=== PATIENT | female | born 1955 | race Hispanic/Latino ===

== ENCOUNTER 2020-11-14 06:20 | Day surgery (SDC) | payer OTHER ==
[2020-11-14] VITALS (10 sets, daily range): BP systolic 144–154; BP diastolic 68–86
[~2020-11-14] VITALS: Ht 162.6 cm; Wt 79.4 kg
[2020-11-14] MEDS ORDERED: 0.9%NACL 1000ML 1,000 ML IV ONE (07:28)
[2020-11-14] MEDS ORDERED: AMLO-257 PO (08:06)
[2020-11-14] MEDS ORDERED: CYAN250014 PO (08:06)
[2020-11-14] MEDS ORDERED: INSU200I SQ (08:06)
[2020-11-14] MEDS ORDERED: INSLAN SQ ×2 (08:06)
[2020-11-14] MEDS ORDERED: ATOR40TA71 PO (08:06)
[2020-11-14] MEDS ORDERED: LEVO25CA4 PO (08:06)
[2020-11-14] MEDS ORDERED: PROPOFOL 10 MG/ML 20ML VIAL IV ONE (12:30)
== END 2020-11-14 13:45 | disposition home or self-care (01) ==
LOC: ENDO 06:20 → DAH 06:20 → ENDO 13:45
PROVIDERS: ATTEND Surgery
DX: K59.00 Constipation, unspecified (principal); Z20.822 Contact with and (suspected) exposure to COVID-19; K57.30 Diverticulosis of large intestine without perforation or abscess without bleeding; E78.5 Hyperlipidemia, unspecified; E11.9 Type 2 diabetes mellitus without complications; I10 Essential (primary) hypertension; K43.9 Ventral hernia without obstruction or gangrene; Z98.51 Tubal ligation status; Z79.899 Other long term (current) drug therapy
CPT/HCPCS: 45378; 82948; A4215 ×2; A4221; A4222; A4223; A4606; A4620; A4657; A4663; C9803; J2704; J7030; U0003

== ENCOUNTER 2020-12-02 07:53 | Day surgery (SDC) | payer OTHER ==
[2020-11-25 13:43] LABS: BASOPHILS % (AUTO) 0.5 % (0.0-5.0); EOSINOPHILS % (AUTO) 0.9 % (0.0-8.0); HEMATOCRIT 41.6 % (36-48); LYMPHOCYTES % (AUTO) 32.3 % (21.0-51.0); MEAN CORPUSCULAR HEMOGLOBIN 26.5 pg (27.0-33.0); MEAN CORPUSCULAR HGB CONC 31.7 g/dL (32.0-36.0); MEAN CORPUSCULAR VOLUME 83.4 fL (79-99); MONOCYTES % (AUTO) 8.4 % (3.0-13.0); NEUTROPHILS % (AUTO) 57.6 % (40.0-77.0); PLATELET COUNT (AUTO) 280 K/uL (130-400); RED BLOOD CELL COUNT(AUTO) 4.99 MIL/uL (4.00-5.50); RED CELL DISTRIBUTION WIDTH 14.3 % (11.0-15.5); WHITE BLOOD COUNT (AUTO) 7.5 K/uL (4.8-10.8)
[2020-11-25 13:50] LABS: CREATININE 0.7 mg/dL (0.5-1.5); POTASSIUM 4.1 mmol/L (3.5-5.1)
[2020-11-25 13:57] LABS: INR 0.98 (0.85-1.15); PROTHROMBIN TIME 10.7 SEC (9.6-11.6)
[2020-11-25 13:58] LABS: PARTIAL THROMBOPLASTIN TIME 25.4 SEC (26.3-35.5)
[2020-12-01 11:45] VITALS: BP 154/73
[2020-12-02] VITALS (15 sets, daily range): BP systolic 116–151; BP diastolic 54–78
[~2020-12-02] VITALS: Ht 157.5 cm; Wt 75.7 kg
[~2020-12-02 07:53] MED LIST: AMLO-257 PO; ATOR40TA71 PO; CYAN250014 PO; DEXAMETHASONE SOD PHOSPHATE 10MG/ML 1ML VIAL ONE; FENTANYL CITRATE PF 50 MCG/1 ML 2ML VIAL ONE; INSLAN SQ; INSU200I SQ; LEVO25CA4 PO; LIDOCAINE PF 2% 5ML ABBOJECT ONE; MIDAZOLAM HCL 1 MG/ML 2ML VIAL ONE; ONDANSETRON HCL 4 MG/2 ML VIAL ONE; PROPOFOL 10 MG/ML 20ML VIAL IV ONE; ROCURONIUM 10MG/1ML SYR 10 MG/ML ML ONE
[2020-12-02] MEDS ORDERED: BUPIVACAINE/PF 0.5% 30ML VIAL ONE (07:59)
[2020-12-02] MEDS: SODIUM CHLORIDE 0.9% 1000ML 1,000 ML IV SCH ×3 (08:20→10:04)
[2020-12-02] MEDS: CEFAZOLIN SODIUM 1 GM VIAL IVP ONE ×2 (08:21→09:00)
[2020-12-02] MEDS ORDERED: FENTANYL CITRATE PF 50 MCG/1 ML 2ML VIAL ONE (09:26)
[2020-12-02] MEDS ORDERED: GLYCOPYRROLATE 1 MG/5 ML SYRINGE ONE (09:49)
[2020-12-02] MEDS ORDERED: NEOSTIGMINE 5MG/5ML SYR IV ONE (09:49)
[2020-12-02] MEDS ORDERED: KETOROLAC TROMETHAMINE 30MG/ML ONE (10:15)
[2020-12-02] MEDS ORDERED: MEPERIDINE-PF 25 MG/ML SYG ONE ×2 (10:15→10:39)
== END 2020-12-02 11:40 | disposition home or self-care (01) ==
LOC: DAH 07:53
PROVIDERS: ATTEND Surgery
DX: K80.12 Calculus of gallbladder with acute and chronic cholecystitis without obstruction (principal); Z20.822 Contact with and (suspected) exposure to COVID-19; K82.8 Other specified diseases of gallbladder; K42.9 Umbilical hernia without obstruction or gangrene; I10 Essential (primary) hypertension; K21.9 Gastro-esophageal reflux disease without esophagitis; E11.9 Type 2 diabetes mellitus without complications; Z90.49 Acquired absence of other specified parts of digestive tract; Z79.01 Long term (current) use of anticoagulants; Z98.890 Other specified postprocedural states; Z79.899 Other long term (current) drug therapy; Z79.4 Long term (current) use of insulin
CPT/HCPCS: 36415; 47562; 71045; 80048; 82948 ×2; 85025; 85610; 85730; 93005; A4215; A4221; A4222; A4223; A4600; A4649 ×3; A4663; A4930 ×2; A6260; C1769 ×2; C9803; G0168; J0690; J1100; J1885; J2001; J2175 ×2; J2250; J2405; J2704; J2710; J3010 ×2; J3490 ×2; J7030 ×2; U0003